=== PATIENT | male | born 1965 | race Caucasian/White ===

== ENCOUNTER 2020-10-19 14:52 | Outpatient (RCR) | payer OTHER, SELFPAY ==
[2020-10-19] MEDS: COVID-19 VACC, MRNA(PFIZER)/PF 30 MCG/0.3 ML SYRINGE IM (16:00)
[2020-11-09] MEDS: COVID-19 VACC, MRNA(PFIZER)/PF 30 MCG/0.3 ML SYRINGE IM (10:00)
== END 2020-12-20 23:59 ==
LOC: IMMUN 14:52
PROVIDERS: Referring Provider Family Medicine; Visit Provider Family Medicine
DX: Z23 Encounter for immunization (principal)
CPT/HCPCS: 0001A; 0002A; 91300

== ENCOUNTER 2020-12-13 22:25 | Observation (INO) | payer OTHER, SELFPAY ==
[2020-12-13 22:29] VITALS: BP 147/95; PULSE 77; RESP 18; TEMP 37.1; O2SAT 99; BMI 31.3
--- NOTE | 2020-12-13 22:33 | EKG12_ITS ---
Test Reason : DYSRHYTHMIA Blood Pressure : / mmHG Vent. Rate : 067 BPM Atrial Rate : 067 BPM P-R Int : 152 ms QRS Dur : 098 ms QT Int : 370 ms P-R-T Axes : 008 -01 -02 degrees QTc Int : 390 ms Normal sinus rhythm Normal ECG Confirmed by COURTNEY MELISSA, HEDY ([id number]), sound editor CARLOS ALBERTO RIOJAS ([id number]) on 12/15/2020 12:32:27 PM Referred By: EMERSON Confirmed By:HEDY VALDEZ MD
[2020-12-13 22:38] VITALS: BP 147/95; PULSE 76; RESP 28; O2SAT 98
--- NOTE | 2020-12-13 22:43 | RAD_ITS ---
HISTORY: Stroke EXAM: XR Chest 1 View: COMPARISON: None FINDINGS: # of images incl. paperwork: 1 Lungs are clear. Heart is not enlarged. No acute osseous pathology perceived. Pulmonary vascularity is distinct. No effusions. RAD/Chest 1 View (Portable) IMPRESSION: Normal. at 2303 Reported and signed by: Josh Jolley MD Electronically Signed: Josh Jolley MD at 23:01 EDT Tel , Service support ,
[2020-12-13 22:49] LABS: Absolute Lymphocyte Count 1.68 X10^3/uL (0.83-4.51); Absolute Neutrophil Count 3.6 X10^3/uL (2.0-7.7); Basophil# 0.03 X10^3/uL; Basophil% 0.5 % (0-1); Eosinophil# 0.07 X10^3/uL; Eosinophils% 1.1 % (0-5); Hematocrit 43.5 % (40-54); Hemoglobin 14.7 g/dL (13.0-16.5); Lymphocyte # 1.68 X10^3/ul (0.83-4.51); Lymphocyte % 27.5 % (19-41); Mean Corp Hgb Conc 33.8 g/dL (32-36); Mean Corpuscular Hgb 28.8 pg (27.0-32.0); Mean Corpuscular Volume 85.1 fL (80-94); Mean Platelet Vol. 10.2 fl (6.2-12.0); Monocyte# 0.76 X10^3/uL; Monocyte% 12.4 % (0-10); NRBC Flagged by Analyzer 0 % (0-5); Neutrophil # 3.57 X10^3/uL (2.7-7.7); Neutrophil % 58.3 % (47-70); Platelet Count 190 K/mm3 (150-450); RBC Distribution Width CV 13.1 % (11.6-14.6); RBC Distribution Width SD 40.9 fl (35.1-43.9); Red Blood Count 5.11 M/mm3 (4.6-6.2); White Blood Count 6.1 K/mm3 (4.4-11.0)
[2020-12-13 22:58] LABS: Prothrombin Time (Protime)PT. 12.5 SECONDS (11.7-14.9)
[2020-12-13 22:59] LABS: Partial Thromboplast Time 37.3 Seconds (24.1-36.2)
[2020-12-13 23:03] VITALS: BP 144/96; PULSE 68; RESP 15; TEMP 36.7; O2SAT 96
[2020-12-13 23:06] LABS: Anion Gap 7 (5-15); BUN 17 mg/dL (7-18); BUN/Creat Ratio 13.6 RATIO (10-20); Calcium,Total 8.6 mg/dL (8.5-10.1); Chloride 105 mmol/L (98-107); Creatinine, Serum 1.25 mg/dL (0.70-1.30); EST Glomerular Filtration Rate 63 mL/min (>60); Est Glom Filt Rate - Afr Amer 77 mL/min (>60); Estimated Creatinine Clearance 60.96 ml/min; Glucose 104 mg/dL (74-106); Potassium 3.9 mmol/L (3.5-5.1); Sodium Level 140 mmol/L (136-145)
[2020-12-13] MEDS: 0.9% Normal Saline 1,000 ML 50 ML IV (23:24)
[2020-12-13 23:30] VITALS: BP 143/80; PULSE 64; RESP 15; TEMP 36.6; O2SAT 98
[2020-12-14] VITALS (13 sets, daily range): BP systolic 117–158; BP diastolic 77–99; PULSE 60–77; RESP 12–19; TEMP 36.3–37.2; O2SAT 97–98; BMI 30.3
--- NOTE | 2020-12-14 00:31 | CT_ITS ---
HISTORY: paresthesia Technique:CT Head or Brain W/O Contrast Injection. Sagittal and coronal 2-D reformats were performed on the acquisition scanner Number of Images including paperwork:253 Comparison: None available. Findings: Baldwin-white differentiation is well preserved. Paranasal sinuses are clear. The brain is atrophic. Calcific ASCVD involves intracranial arteries. No acute intracranial edema or hemorrhage. No acute abnormality of orbits. Middle ear cavities and mastoid air cells are well aerated. Skull is normal. CT/Brain/Head without Contrast IMPRESSION: No acute intracranial abnormality. Chronic changes as above. ASPECT 10. Individualized dose optimization techniques were used for this CT. at 0107 Reported and signed by: Josh Jolley MD Electronically Signed: Josh Jolley MD at 1:06 EDT Tel , Service support ,
--- NOTE | 2020-12-14 00:31 | ED.VIS.STROK ---
HPI History of Present Illness Chief Complaint: Numb/Ting Narrative Narrative: Patient presents with tingling. He noticed some tingling in his right hand right foot and mouth approximately 9:20 PM it lasted for an hour and then went away. Currently he only feels very slight tingling in his lips. No home treatment. Denies any medical problems. He takes no medications. No previous surgeries. No history of TIA or stroke. Denies any other symptoms. The right hand and foot are no longer paresthesia. PFSH PFSH Home Medications NK 12/13/20 [History Last Taken Unknown] Allergy/AdvReac Type Severity Reaction Status Date / Time No Known Allergies Allergy Verified 12/13/20 22:29 Social History Smoking Status: Never smoker ROS ROS ED ROS Narrative ROS General: Denies fever, chills, sweats Eyes: Denies visual changes, blurred vision, double vision ENT: Denies ear pain, rhinorrhea, sore throat Cardiovascular: Denies chest pain, palpitations, heart racing Respiratory: Denies dyspnea, cough, sputum, dyspnea on exertion, orthopnea,PND GI: Denies abdominal pain, nausea, vomiting, diarrhea, constipation, melena : Denies dysuria, hematuria, frequency Musculoskeletal: Denies myalgias, arthralgias, neck pain, back pain Skin: Denies rash, abscess, abrasions Neuro: See HPI Psych: Denies depression, anxiety Endo: Denies polyuria, polydipsia, polyphagia Heme: Denies easy bruising, easy bleeding, lymphadenopathy Allergy: Denies hives, swelling EXAM Physical Exam Narrative Exam Narrative: Vital signs reviewed General: Well-nourished well-developed Head: Normocephalic atraumatic Eyes: Pupils equal round and reactive to light extraocular movements intact ENT: TMs clear no hemotympanum no trauma Neck: Nontender full range of motion Cardiovascular: Regular rate rhythm no murmurs normal S1-S2 Respiratory: No distress clear to auscultation bilaterally chest nontender Abdomen: Soft nontender nondistended normal bowel sounds no masses Back: Nontender no CVA tenderness Extremities: Nontender active range of motion ?4 extremities no trauma Skin: Normal color no trauma Neuro alert oriented cranial nerves II through XII intact normal strength reflexes. Slight numbness to his lips per patient subjectively. NIH 1 secondary to this. Const Vital Signs: 12/13/20 22:29 12/13/20 22:38 12/13/20 23:03 Temperature 98.7 F 98.0 F Temperature Source Oral Temporal Pulse Rate 77 76 68 Respiratory Rate 18 28 H 15 Blood Pressure 147/95 H 147/95 H 144/96 H Blood Pressure Mean 112 112 112 Pulse Ox 99 98 96 Oxygen Delivery Method Room Air Room Air Room Air 12/13/20 23:30 12/14/20 00:00 12/14/20 00:26 Temperature 97.8 F 98.2 F Temperature Source Temporal Temporal Pulse Rate 64 64 Respiratory Rate 15 17 18 Blood Pressure 143/80 H 154/90 H Blood Pressure Mean 101 111 Pulse Ox 98 98 Oxygen Delivery Method Room Air Room Air 12/14/20 00:30 12/14/20 01:00 12/14/20 01:18 Temperature 98.0 F 97.7 F L Temperature Source Oral Temporal Pulse Rate 65 66 64 Respiratory Rate 13 19 H 18 Blood Pressure 156/97 H 155/98 H 152/99 H Blood Pressure Mean 116 117 116 Pulse Ox 98 98 98 Oxygen Delivery Method Room Air Room Air STROKE Vital Signs/Narrative: Vital Signs Temp Pulse Resp BP Pulse Ox 12/14/20 01:18 64 18 152/99 H 98 12/14/20 01:00 97.7 F L 66 19 H 155/98 H 98 12/14/20 00:30 98.0 F 65 13 156/97 H 98 12/14/20 00:26 18 12/14/20 00:00 98.2 F 64 17 154/90 H 98 12/13/20 23:30 97.8 F 64 15 143/80 H 98 12/13/20 23:03 98.0 F 68 15 144/96 H 96 12/13/20 22:38 76 28 H 147/95 H 98 12/13/20 22:29 98.7 F 77 18 147/95 H 99 MDM MDM MDM Narrative Medical decision making narrative: Lab work EKG chest x-ray obtained upon arrival. My interpretation of his chest x-ray shows nothing acute. Lab work shows nothing acute including CBC BMP and coags. CT head obtained. EKG showed normal sinus rhythm at a rate of 67 with no acute ischemia or arrhythmia. T wave inversion in inferior lead III only. CT head showed chronic changes atherosclerotic changes intracranial with no acute findings. Duration the patient's tingling in his mouth is resolved. He is back to normal. Discussed the case with the patient. I appears he had a TIA. Discussed the case with the hospitalist Lab Data Labs: Laboratory Results - last 24 hr 12/13/20 12/13/20 12/13/20 22:40 22:40 22:40 WBC 6.1 RBC 5.11 Hgb 14.7 Hct 43.5 MCV 85.1 MCH 28.8 MCHC 33.8 RDW Std Deviation 40.9 RDW Coeff of Dannielle 13.1 Plt Count 190 MPV 10.2 Immature Gran % (Auto) 0.200 Neut % (Auto) 58.3 Lymph % (Auto) 27.5 [place] % (Auto) 12.4 H Eos % (Auto) 1.1 Baso % (Auto) 0.5 Absolute Neuts (auto) 3.6 Absolute Lymphs (auto) 1.68 Nucleated RBC % 0 PT 12.5 INR 1.0 APTT 37.3 H Sodium 140 Potassium 3.9 Chloride 105 Carbon Dioxide 28.0 Anion Gap 7 BUN 17 Creatinine 1.25 Estim Creat Clear Calc 60.96 Est GFR (MDRD) Af Amer 77 Est GFR (MDRD) Non-Af 63 BUN/Creatinine Ratio 13.6 Glucose 104 Calcium 8.6 Radiography Diagnostic Testing: Radiology Impression Chest X-Ray 12/13/20 22:43 IMPRESSION: Normal. at 2303 Reported and signed by: Josh Jolley MD Electronically Signed: Josh Jolley MD at 23:01 EDT Tel , Service support , Brain CT 12/14/20 00:31 IMPRESSION: No acute intracranial abnormality. Chronic changes as above. ASPECT 10. Individualized dose optimization techniques were used for this CT. at 0107 Reported and signed by: Josh Jolley MD Electronically Signed: Josh Jolley MD at 1:06 EDT Tel , Service support , Discharge Plan Triage Chief Complaint: Numb/Ting ED Provider: Solomon Morales Dx/Rx/DC Orders Clinical Impression: Brain TIA Prescriptions: No Action NK RF: 0 Primary Care Provider: Care Physician,No Primary Referrals: Care Physician,No Primary [Primary Care Provider] -
--- NOTE | 2020-12-14 02:23 | MRI_ITS ---
STUDY: MRI BRAIN WITHOUT CONTRAST REASON FOR EXAM: Male, 55 years old. right sided parathesias TECHNIQUE: Standardized multiplanar fat and water weighted pulse sequences were obtained. COMPARISON: None. FINDINGS: Normal size of the ventricles and extra-axial spaces for the patient''s age. Normal white matter tracts of the supratentorial brain. There is no evidence for recent intracranial ischemia or other cause of cytotoxic edema on diffusion weighted imaging (DWI). Normal T2* images of the brain without demonstrated susceptibility artifact. There is no demonstrated hemosiderin stain. Normal bilateral basal ganglia. Normal thalami. There is no extra-axial fluid accumulation. Normal flow voids within the major intracranial circulation suggesting patency by spin echo criteria. Normal sella turcica, pituitary gland, infundibular stalk, optic chiasm and hypothalamus. Normal tectal plate and pineal gland. Normal midbrain, muna and medulla. Normal cerebellum. Normal basal cisterns. Normal bilateral temporal bones. Normal bilateral internal auditory canals. No demonstrated orbital abnormality, within the constraints of a routine brain study. Normal visualized paranasal sinuses. Normal calvarium and skull base. Normal visualized soft tissue structures. Normal visualized upper cervical spine. MRI/Brain without Contrast IMPRESSION: No evidence of acute intracranial bleed, mass or ischemia. Electronically Signed: Fritz Ríos DO at 11:32 EDT , Service support ,
--- NOTE | 2020-12-14 02:23 | MRI_ITS ---
STUDY: MRA OF THE HEAD WITHOUT CONTRAST REASON FOR EXAM: Male, 55 years old. right sided parathesias TECHNIQUE: 3-D aixc-iw-sjnudv (TOF) imaging was performed with MIPs. The study was performed unenhanced. COMPARISON: None. FINDINGS: Normal bilateral petrous carotid arteries. Normal right cavernous carotid artery with a normal supraclinoid bifurcation. Normal left cavernous carotid artery with a normal supraclinoid bifurcation. Normal right A1 segments of the anterior cerebral artery. Normal left A1 segments of the anterior cerebral artery. Normal intact anterior communicating artery (ACOM). Normal bilateral A2 segments of the anterior cerebral arteries. Normal right M1 and M2 segments of the middle cerebral arteries, with a normal M1 bifurcation. Normal left M1 and M2 segments of the middle cerebral arteries, with a normal M1 bifurcation. Normal right posterior communicating artery (PCOM). Normal left posterior communicating artery (PCOM). Normal bilateral vertebral arteries. Normal basilar artery with a normal basilar bifurcation. The visualized bilateral superior cerebellar (SCA) arteries are normal. Normal bilateral P1, P2 and visualized P3 segments of the posterior cerebral arteries. There is no demonstrated aneurysm of the [place]. There is no major vessel occlusion or hemodynamically significant stenosis. There is no demonstrated abnormality of the visualized brain. MRI/MRA Head ONLY without Contrast IMPRESSION: No evidence of significant steno-occlusive disease or aneurysm. Electronically Signed: Fritz Ríos DO at 11:33 EDT , Service support ,
--- NOTE | 2020-12-14 02:23 | MRI_ITS ---
STUDY: MRA NECK WITH AND WITHOUT CONTRAST REASON FOR EXAM: Male, 55 years old. right sided parathesias TECHNIQUE: 3-D gvdz-sb-qwixak (TOF) imaging was performed in an 1.5 T MRI scanner. dotarem 18ml iv was administered for the contrast enhanced images. COMPARISON: None. FINDINGS: RIGHT CAROTID ARTERIES: Normal right common carotid artery (CCA). Normal right common carotid bulb. Normal origin of the right internal carotid (ICA) artery without a hemodynamically significant stenosis. Normal visualized cervical portion of the right internal carotid artery. Normal origin of the right external carotid artery (ECA). LEFT CAROTID ARTERIES: Normal left common carotid artery (CCA). Normal left common carotid bulb. Normal origin of the left internal carotid (ICA) artery without a hemodynamically significant stenosis. Normal visualized cervical portion of the left internal carotid artery. Normal origin of the left external carotid artery (ECA). VERTEBRAL ARTERIES: Normal antegrade flow within the bilateral vertebral artery without a hemodynamically significant stenosis. MRI/MRA Neck WITH and W/O Contrast IMPRESSION: No evidence of significant steno-occlusive disease or aneurysm. Electronically Signed: Fritz Ríso DO at 11:34 EDT , Service support ,
--- NOTE | 2020-12-14 02:45 | HP.PCM.HOS_ITS ---
[facility] - General General Date of Admission: 12/14/20 Date of Service: 12/14/20 Chief Complaint: Right hand and foot tingling, tingling around mouth HPI Narrative MENDY AGUSTIN, is a 55 M who presents to the emergency room at [facility] with complaints of tingling in his right hand and right foot which lasted 1-1 and half hours starting a few hours before being seen in the emergency room on 12/14/2020. Patient also complained of tingling around his mouth. The symptoms lasted till shortly after he was evaluated in the emergency room, they have now subsided completely. Patient had no problems with vision or speech, he had no actual focal weakness. Patient denies any chronic medical problems and takes no medications at home. Work-up in the emergency room including a CT of the brain, CBC, and a CHEM panel were unremarkable. Patient will be placed into observation status for right- sided paresthesias, he will undergo an MRI of the brain, MRA of the head and neck. I have chosen not to order an echocardiogram at this time. [facility] Medical History (Updated 12/14/20 @ 02:[address] Sincere Quick DO) Bunion Home Medications NK 12/13/20 [History Last Taken Unknown] Allergy/AdvReac Type Severity Reaction Status Date / Time No Known Allergies Allergy Verified 12/13/20 22:29 Surgical History (Updated 12/14/20 @ 02:[address] Sincere Quick DO) History of bunionectomy Social History Smoking Status: Never smoker ROS Constitutional Constitutional: Denies anorexia, change in weight, chills, fatigue, fever(s), malaise, night sweats or weakness Eyes Eyes: Denies blurry vision, change in vision, discharge from eye(s), eye pain or loss of vision ENT HEENT: Denies abnormal hearing, ear pain, headache(s) or hearing loss Cardiovascular Cardiovascular: Denies chest pain, claudication, dyspnea on exertion, edema or palpitations Respiratory/Chest Respiratory/Chest: Denies cough, dyspnea, hemoptysis, productive cough, shortness of breath at rest or shortness of breath with exertion Gastrointestinal Gastrointestinal: Denies abdominal pain, constipation, diarrhea, hematemesis, hematochezia, melena, nausea or vomiting Genitourinary Genitourinary: Denies burning urination, difficulty urinating, dysuria, hematuria, urinary frequency, urinary hesitancy, urinary incontinence or urinary urgency Musculoskeletal Musculoskeletal: Denies back pain, joint pain, joint stiffness, joint swelling, myalgias or neck pain Neurologic Neurologic: Reports paresthesias RUE and RLE and tingling; Denies abnormal gait, abnormal speech, confusion, disequilibrium, dizziness, focal weakness, headache(s), loss of vision, numbness, other visual disturbances or syncope Psychiatric Psychiatric: Denies anxiety, cognitive impairment, depression, irritability, mood swings or suicidal ideation Endocrine Endocrinology: Denies change in body appearance, cold intolerance, excessive sweating, heat intolerance, polydipsia or polyuria Hematologic/Lymphatic Hematologic/Lymphatic: Denies none, anemia, easy bleeding, easy bruising or lymphadenopathy Allergic/Immunologic Allergic/Immunologic: Denies rhinitis, urticaria, eczemia or asthma Vital Signs Vital Signs Vital Signs: 12/13/20 22:29 12/13/20 22:38 12/13/20 23:03 Temperature 98.7 F 98.0 F Temperature Source Oral Temporal Pulse Rate 77 76 68 Respiratory Rate 18 28 H 15 Blood Pressure 147/95 H 147/95 H 144/96 H Blood Pressure [BP] Blood Pressure Mean 112 112 112 Blood Pressure Mean [BP] Blood Pressure Source Blood Pressure Source [BP] Blood Pressure Position Blood Pressure Position [BP] Blood Pressure Location Blood Pressure Location [BP] Pulse Ox 99 98 96 Oxygen Delivery Method Room Air Room Air Room Air 12/13/20 23:30 12/14/20 00:00 12/14/20 00:26 Temperature 97.8 F 98.2 F Temperature Source Temporal Temporal Pulse Rate 64 64 Respiratory Rate 15 17 18 Blood Pressure 143/80 H 154/90 H Blood Pressure [BP] Blood Pressure Mean 101 111 Blood Pressure Mean [BP] Blood Pressure Source Blood Pressure Source [BP] Blood Pressure Position Blood Pressure Position [BP] Blood Pressure Location Blood Pressure Location [BP] Pulse Ox 98 98 Oxygen Delivery Method Room Air Room Air 12/14/20 00:30 12/14/20 01:00 12/14/20 01:18 Temperature 98.0 F 97.7 F L Temperature Source Oral Temporal Pulse Rate 65 66 64 Respiratory Rate 13 19 H 18 Blood Pressure 156/97 H 155/98 H 152/99 H Blood Pressure [BP] Blood Pressure Mean 116 117 116 Blood Pressure Mean [BP] Blood Pressure Source Blood Pressure Source [BP] Blood Pressure Position Blood Pressure Position [BP] Blood Pressure Location Blood Pressure Location [BP] Pulse Ox 98 98 98 Oxygen Delivery Method Room Air Room Air 12/14/20 01:30 12/14/20 02:17 12/14/20 02:37 Temperature 97.6 F L 97.4 F L Temperature Source Temporal Temporal Pulse Rate 77 63 73 Respiratory Rate 19 H 16 16 Blood Pressure 146/98 H 129/93 H Blood Pressure [BP] 158/98 H Blood Pressure Mean 114 105 Blood Pressure Mean [BP] 118 Blood Pressure Source Blood Pressure Source [BP] Monitor Blood Pressure Position Blood Pressure Position [BP] Semi-Fowlers Blood Pressure Location Blood Pressure Location [BP] Right Arm Pulse Ox 98 98 98 Oxygen Delivery Method Room Air Room Air Room Air 12/14/20 02:38 Temperature 97.4 F L Temperature Source Temporal Pulse Rate 73 Respiratory Rate 16 Blood Pressure 158/98 H Blood Pressure [BP] Blood Pressure Mean 118 Blood Pressure Mean [BP] Blood Pressure Source Monitor Blood Pressure Source [BP] Blood Pressure Position Semi-Fowlers Blood Pressure Position [BP] Blood Pressure Location Right Arm Blood Pressure Location [BP] Pulse Ox 98 Oxygen Delivery Method Room Air Weight Weight: 90.4 kg Body Mass Index (BMI) 30.3 Physical Exam Const alert, oriented x3, no apparent distress, average body habitus, healthy ap pearing and well nourished General Appearance: cooperative, well kempt and well developed Orientation / Consciousness: awake, oriented to person, oriented to place and oriented to time HEENT normocephalic, head/scalp atraumatic, hearing grossly normal bilaterally and moist oral mucous membranes Eyes PERRL, EOMs intact bilaterally and conjunctivae normal Neck nuchal rigidity, supple, no JVD, thyroid normal and no carotid bruits General: trachea midline Resp normal respiratory effort, no retractions, no use of accessory muscles and clear to auscultation bilaterally Auscultation: Negative for rales, rhonchi or wheezes Cardio regular rate, regular rhythm, S1 normal heart sound, S2 normal heart sound, no murmurs, no rub and no gallops GI normal to inspection, nondistended, normoactive bowel sounds, soft to palpation, non-tender and non-distended Extremity normal to inspection, full ROM and no clubbing, cyanosis or edema Skin no rashes or lesions noted, no wounds, skin turgor normal and no jaundice General Skin Exam: no breakdown Neuro oriented x3, CN's II-XII intact bilaterally, no focal motor deficits and no sensory deficits noted Sensorium / Orientation: awake and alert Speech: speech normal Motor Exam: strength 5/5 throughout Psych thought process normal and affect normal Lab / Micro Data Result Diagrams: 12/13/20 22:40 12/13/20 22:40 Labs: Laboratory Results - last 24 hr 12/13/20 12/13/20 12/13/20 22:40 22:40 22:40 WBC 6.1 RBC 5.11 Hgb 14.7 Hct 43.5 MCV 85.1 MCH 28.8 MCHC 33.8 RDW Std Deviation 40.9 RDW Coeff of Dannielle 13.1 Plt Count 190 MPV 10.2 Immature Gran % (Auto) 0.200 Neut % (Auto) 58.3 Lymph % (Auto) 27.5 [place] % (Auto) 12.4 H Eos % (Auto) 1.1 Baso % (Auto) 0.5 Absolute Neuts (auto) 3.6 Absolute Lymphs (auto) 1.68 Nucleated RBC % 0 PT 12.5 INR 1.0 APTT 37.3 H Sodium 140 Potassium 3.9 Chloride 105 Carbon Dioxide 28.0 Anion Gap 7 BUN 17 Creatinine 1.25 Estim Creat Clear Calc 60.96 Est GFR (MDRD) Af Amer 77 Est GFR (MDRD) Non-Af 63 BUN/Creatinine Ratio 13.6 Glucose 104 Calcium 8.6 Radiology Impression Chest X-Ray 12/13/20 22:43 IMPRESSION: Normal. at 2303 Reported and signed by: Josh Jolley MD Electronically Signed: Josh Jolley MD at 23:01 EDT Tel , Service support , Brain CT 12/14/20 00:31 IMPRESSION: No acute intracranial abnormality. Chronic changes as above. ASPECT 10. Individualized dose optimization techniques were used for this CT. at 0107 Reported and signed by: Josh Jolley MD Electronically Signed: Josh Jolley MD at 1:06 EDT Tel , Service support , Assessment & Plan Assessment/Plan (1) Paresthesias in right hand: (2) Right leg paresthesias: PLAN: 1. Right hand and foot paresthesias-etiology unclear, symptoms are resolved at this time, patient will be placed in observation status on PCU, he will undergo an MRI of the brain and an MRA of the head and neck. I have chosen not to order an echocardiogram at this point or a teleneuro consult. Patient will be seen by PT and OT #2 circumoral tingling-etiology unclear, see #1 for work-up Visit Charges OBSV E&M: 30813 Initial observation care L3
--- NOTE | 2020-12-14 13:08 | PCM.DC ---
Discharge Instructions Diet Discharge Diet: No restrictions Activity Discharge Activity: Return to Normal Activity Dressing / Incision Call your doctor if you observe: Fever of 101 or Higher, Coldness, Increased Pain, Numbness or Tingling, Inability to urinate, Inability to have a bowel movement, Shortness of breath, Dizziness, Fainting spells, Swelling in the ankles, Chest pain, Prolonged hiccupping, Increased palpitations (irregular heartbeat), Calf discomfort and Uncontrolled pain Follow Up Care Test Results: Test results from this visit will be discussed in further detail at your follow-up appointment, if applicable. Discharge Plan Admission Admit Date/Time: 12/14/20 02:23 Primary Reason for Your Visit: Numbness and tingling. TIA ruled out Attending Provider: Rajeev Denson Primary Care Provider: Care Physician,No Primary Instructions Patient Instructions: ED Paraesthesias Discharge Orders/Prescriptions Prescriptions: No Action NK RF: 0 Referrals / Follow Up: Care Physician,No Primary [Primary Care Provider] - Disposition Disposition (needs filled in before D/C Order can be placed): Home, self care
--- NOTE | 2020-12-14 13:11 | DS.PCM_ITS ---
Providers Date of Admission: 12/14/20 Primary Care Physician: No Primary Care Phys Reason For Visit: RIGHT SIDED PARATHESIAS Diagnosis Discharge Diagnosis (1) Paresthesias in right hand: Status: Acute Code(s): R20.2 - Paresthesia of skin (2) Right leg paresthesias: Status: Acute Code(s): R20.2 - Paresthesia of skin Medications at Discharge Home Medications NK 12/13/20 Hospital Course Summary of Care Provided Hospital Course: There is a 55-year-old gentleman was admitted for right hand foot and perioral numbness and tingling lasted for 1.5 hours. Patient was admitted in PCU. CT head does not show any acute change. Furt greg, patient had MRI brain and MRA head and neck which did not show acute abnormality. tufting machine operator normal sinus rhythm. EKG shows normal sinus rhythm. Labs overall were unremarkable. Chest x-ray reported normal. Patient calcium level was normal. Fasting profile within normal limit. Patient was advised to follow-up PCP in 1 week for repeat BMP. A stroke or TIA ruled out. Might be transient transient, left numbness or tingling, exact etiology unclear. Discharge medication reconciliation done. Discharge follow-up instructions completed. Discharge process discussed with the patient and all questions were answered to patient's satisfaction. Physical Exam Narrative Seen and examined. Patient was admitted for right hand and foot and perioral numbness and tingling. Denies any previous history of coronary artery disease, peripheral arterial disease, TIA or stroke. Patient states he is healthy lifestyle. Physical exam General: Alert, Oriented x3, Cooperative HEENT: Atraumatic, PERRLA, EOMI, Normocephalic, no diplopia or gross visual field abnormality on visual confrontation test Oral: No Gingival or Mucosal Lesions/ Ulcerations Neck: Supple, No JVD, Negative Carotid Bruits Lungs: Air entry equal in bilateral lung bases. No crepitation/rhonchi Cardiovascular: Regular rate, Regular Rhythm, Normal S1, Normal S2, No murmurs Abdomen: Bowel Sounds Present, Soft, Non Tender, Non-Distended : No renal angle tenderness. No suprapubic tenderness. Extremities: No edema, Capillary Refill Less than 3 Seconds Skin: No rashes, No breakdown Musculoskeletal: No Tenderness to Palpation of Joints or Extremities Neurological: Cranial nerves II-XII grossly intact, Deep Tendon Reflexes 2+/4 and Symmetrical, Neuro grossly intact. NIH stroke scale 0 Psych/Mental Status: Normal Affect, Appropriate. ABG / Lab / Microbiology Data Result Diagrams: 12/13/20 22:40 12/13/20 22:40 Laboratory: Laboratory Results - last 24 hr 12/13/20 12/13/20 12/13/20 22:40 22:40 22:40 WBC 6.1 RBC 5.11 Hgb 14.7 Hct 43.5 MCV 85.1 MCH 28.8 MCHC 33.8 RDW Std Deviation 40.9 RDW Coeff of Dannielle 13.1 Plt Count 190 MPV 10.2 Immature Gran % (Auto) 0.200 Neut % (Auto) 58.3 Lymph % (Auto) 27.5 [place] % (Auto) 12.4 H Eos % (Auto) 1.1 Baso % (Auto) 0.5 Absolute Neuts (auto) 3.6 Absolute Lymphs (auto) 1.68 Nucleated RBC % 0 PT 12.5 INR 1.0 APTT 37.3 H Sodium 140 Potassium 3.9 Chloride 105 Carbon Dioxide 28.0 Anion Gap 7 BUN 17 Creatinine 1.25 Estim Creat Clear Calc 60.96 Est GFR (MDRD) Af Amer 77 Est GFR (MDRD) Non-Af 63 BUN/Creatinine Ratio 13.6 Glucose 104 Calcium 8.6 Radiography Diagnostic Testing: Radiology Impression Chest X-Ray 12/13/20 22:43 IMPRESSION: Normal. at 2303 Reported and signed by: Josh Jolley MD Electronically Signed: Josh Jolley MD at 23:01 EDT Tel , Service support , Brain CT 12/14/20 00:31 IMPRESSION: No acute intracranial abnormality. Chronic changes as above. ASPECT 10. Individualized dose optimization techniques were used for this CT. at 0107 Reported and signed by: Josh Jolley MD Electronically Signed: Josh Jolley MD at 1:06 EDT Tel , Service support , Brain MRI 12/14/20 02:23 IMPRESSION: No evidence of acute intracranial bleed, mass or ischemia. Electronically Signed: Fritz RíosDO at 11:32 EDT , Service support , Head MRA 12/14/20 02:23 IMPRESSION: No evidence of significant steno-occlusive disease or aneurysm. Electronically Signed: Fritz RíosDO at 11:33 EDT , Service support , Neck MRA 12/14/20 02:23 IMPRESSION: No evidence of significant steno-occlusive disease or aneurysm. Electronically Signed: Fritz RíosDO at 11:34 EDT , Service support , D/C Instructions Discharge Diet: No restrictions Discharge Activity: Return to Normal Activity Call your doctor if you observe: Fever of 101 or Higher, Coldness, Increased Pain, Numbness or Tingling, Inability to urinate, Inability to have a bowel movement, Shortness of breath, Dizziness, Fainting spells, Swelling in the ankles, Chest pain, Prolonged hiccupping, Increased palpitations (irregular heartbeat), Calf discomfort and Uncontrolled pain Meaningful Use Info Meaningful Use Diagnoses (Choose all that apply): None applicable Discharge Plan Admission Admit Date/Time: 12/14/20 02:23 Primary Reason for Your Visit: Numbness and tingling. TIA ruled out Attending Provider: Rajeev Denson Primary Care Provider: Care Physician,No Primary Instructions Patient Instructions: ED Paraesthesias Discharge Orders/Prescriptions Prescriptions: No Action NK RF: 0 Referrals / Follow Up: Care Physician,No Primary [Primary Care Provider] - Disposition Disposition (needs filled in before D/C Order can be placed): Home, self care Visit Charges OBSV E&M: [id number] Observation care discharge
--- NOTE | 2020-12-14 13:21 | PHA.DC.MR ---
Pharmacy Service has performed discharge medication reconciliation for this patient. The patient's discharge medication list was reviewed for discrepancies and discrepancies were resolved. Home Medications NK 12/13/20
--- NOTE | 2020-12-14 13:33 | NURSING ---
[facility] late due to pt off floor for MRI.
[2020-12-14 14:13] LABS: Cholesterol 197 mg/dL (200); High Density Lipoprotein 45 mg/dL; Triglycerides 157 mg/dL; Very Low Density Lipoprotein 31 mg/dL (5-40)
== END 2020-12-14 13:15 | disposition home or self-care (01) ==
LOC: ED 12-14 01:55 → PCU 12-14 02:29
PROVIDERS: Admitting Provider Internal Medicine; Emergency Provider Emergency Medicine; Visit Provider Internal Medicine
DX: R20.2 Paresthesia of skin (principal); R29.701 NIHSS score 1; R20.0 Anesthesia of skin
CPT/HCPCS: 70450; 70544; 70549; 70551; 71045; 80048; 80061; 85025; 85610; 85730; 93005; 99218; 99285; A9575; J7030; A4216; G0378